=== PATIENT | female | born 1985 | race Caucasian/White ===

== ENCOUNTER 2018-01-21 08:16 | Emergency (ER) | payer OTHER ==
[~2018-01-21] VITALS: Ht 154.9 cm; Wt 53.6 kg
[~2018-01-21 08:16] MED LIST: NOCURR
[2018-01-21] MEDS ORDERED: KETOROLAC TROMETHAMINE 30 MG/ML VIAL IM ONE (09:45)
[2018-01-21] MEDS ORDERED: CYCLOBENZAPRINE HCL 10 MG TABLET PO ONE (09:45)
[2018-01-21 10:37] VITALS: BP 120/74
[2018-01-21] MEDS ORDERED: HYDROCODONE/ACETAMINOPHEN 5-325 MG TABLET PO ONE (10:45)
== END 2018-01-21 11:21 | disposition home or self-care (01) ==
LOC: EMS 08:18
DX: M62.838 Other muscle spasm (principal)
CPT/HCPCS: 96372; 99283; J1885